=== PATIENT | female | born 1970 | race Caucasian/White ===

== ENCOUNTER 2023-08-19 13:00 | Outpatient (RCR) | payer OTHER, SELFPAY ==
--- NOTE | 2023-07-21 07:14 | HP.OTEVAL_ITS ---
Patient's Visit Information Visit Information Visit Information: MICHELLE GONZALES is a 52 year old F, referred to Occupational Therapy by Dr. Kymberly Agee, , with a diagnosis of left radius fx/tendinitis/ CRPS. Date of Evaluation: 07/20/23 Occupational Therapist: Radha Wright, ALLEN/Tara, CHT Subjective Subjective: This 52 year old female was seen for OT eval with dx of bilateral radius fx. pt states she pt states fall Oct. 1st fall while going down hill pt put her hands out to stop herself with a tree so she didn't go down the hill. pt able to get back on her horse and finish last 10 min. new something was not right. pt states next day was 04/06/23 [facility] for x ray, sent home and then was called back for more x-ray- was told no fx, and placed in braces- told to use as much as she could. A follow up was done before - and due to pain and edema on left pt did have MRI in Jun. pt states MRI said stable left radius fx. tendon tears. pt states she went to a thumb spica for about two weeks ( due to increase swelling and pain) She went to see Dr. Agee and she rec'd pt to stay out of the TSS. pt has done so and states she is feeling better. pain is better and swelling is down. 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 pt would like to return to her PLOF of camping, cooking, and other tasks she enjoys as soon as possible. ADLs Dressing: Button shirt Fasteners: Buttons, Zippers and Snaps Comments: increase pain left hand Kitchen: Open jars and Open bottle caps Comments: increase pain left hand Pain right wrist: Current Pain Intensity: 3 Pain Intensity Range: 0 left wrist: Current Pain Intensity: 2 Pain Intensity Range: 0, 3 and 4 ROM Forearm: supination right 75 left 70 Wrist: right 50/40 left 45/30 Opposition: Kapandji opposition scale right 5 left 5 ROM Comments: right RD [address] 5 UD 10 Strength County Supervisor: right 20# left 10# Lateral Pinch: right 2# left NT Tripod Pinch: right 4# left NT Strength Comments: pain with resistive anesthesiologist/physician/ pinch pt demo with weakness left greater than right Sensation Sensation Comments: pt states tingling sensation dorsal side of thumb and LF/RF Quick DASH-Disab of Arm,Shoulder& Hand Quick DASH Score: 40.0000 Goals Goal:ROM equal to unaffected hand: Yes Goal:County Supervisor/Pinch strength at least 75% of unaffected hand: Yes Goal:No pain with affected hand use: Yes Goal:Full use of affected hand in daily activities including work: Yes Rehabilitation General Assessment: pt demo with a decrease in left wrist AROM and pain limiting pts functional strength of left UE increasing need of assistance with ADLS and IADLs. pt would benefit from skilled OT services 2x week for 6 weeks to return pt to her PLOF. Today therapist ed. pt on wrist/forearm ROM as well as edema control. pt demo understanding and agree to POC. Rehabilitation Potential: Good Anticipated Interventions Anticipated Interventions: A/AAROM/PROM, Strengthening, Edema Control, Triggerpoint Release, Modalities, Orthoses, Joint Protection/Energy Conservation, Ergonomic Education, Education re assistive Equipment, Education re Diagnosis and Home Program Other Interventions: wrist stabilization ex. Visit Plan Frequency: 1-2x /Week Duration: 2 Months General Plan: decrease edema increase ROM increase strength as tolerates TEXT: Thank you for the opportunity to evaluate your patient. For Medicare and Medicare HMO plans, please review the plan of care and approve it. It will need to be FAXED BACK to us at [phone] for Medicare purposes. Please let me know if there are questions or concerns regarding this plan of care. Physician Signature: Date:
--- NOTE | 2023-10-14 13:58 | HP.OT.NRP ---
Patient Information Patient Information: MICHELLE GONZALES was seen in my office for initial evaluation on 07/20/23. The following Plan of Care was established for this patient: POC Established Initial Frequency: 1-2x /Week Initial Duration: 2 Months Plan: cont with passive ROM wrist proprioceptive ex. thumb flex and Palmar abduction Anticipated Interventions Anticipated Interventions: A/AAROM/PROM, Strengthening, Edema Control, Triggerpoint Release, Modalities, Orthoses, Joint Protection/Energy Conservation, Ergonomic Education, Education re assistive Equipment, Education re Diagnosis and Home Program Other Interventions: wrist stabilization ex. Last Seen Last Seen: This patient was last seen in our office 08/19/22. Pertinent comments regarding their Occupational therapy will appear below: pt was seen for 9 OT sessions. Pt continued to demo with a decrease in ROM and pain. Pt did have improvements- pt returned to for possible injection- pt has not scheduled further apts and due to time lapse in care pt is d/c. At this point I will be discontinuing this patient from occupational therapy. I would be happy to see this patient again in the future if found appropriate by the physician. Thank you! Radha Wright, OTR/L, CHT
== END 2023-08-19 19:00 | disposition home or self-care (01) ==
LOC: OT 13:00
PROVIDERS: Referring Provider Orthopaedic Surgery; Visit Provider Orthopaedic Surgery
DX: M25.532 Pain in left wrist (principal); G90.512 Complex regional pain syndrome I of left upper limb; M77.8 Other enthesopathies, not elsewhere classified; S62.102D Fracture of unspecified carpal bone, left wrist, subsequent encounter for fracture with routine healing
CPT/HCPCS: 97035; 97110; 97140; 97166